=== PATIENT | female | born 1985 | race Caucasian/White ===

== ENCOUNTER 2019-05-15 22:34 | Emergency (ER) | payer MEDICAID ==
[2019-05-15 23:01] VITALS: BP 136/72; PULSE 89
[2019-05-15] MEDS ORDERED: Lidocaine 1% 20 ML MDV ONE (23:04)
[2019-05-15] MEDS ORDERED: Diphtheria,Pertussis(Acell),Tetanus Vaccine 0.5 ML SDV IM ONE (23:13)
--- NOTE | 2019-05-15 23:18 | EDM.PDOC ---
ED HPI GENERAL MEDICAL PROBLEM - General Chief Complaint: General Stated Complaint: laceration left wrist Time Seen by Provider: 05/15/19 23:12 Source of Information: Reports: Patient History Limitations: Reports: No Limitations - History of Present Illness INITIAL COMMENTS - FREE TEXT/NARRATIVE: Patient is a 33-year-old female who presents to the emergency department this evening via private vehicle with a complaint of laceration to left wrist. Patient states that a metal sculpture fell off a shelf and she tried to catch it , but it accidentally cut her left wrist. This occurred approximately 2029 this evening. Patient is not up-to-date with tetanus. Patient denies any other injury or self-inflicted wound. Onset: Today Onset Date: 05/15/19 Onset Time: 20:30 Duration: Hour(s): Location: Reports: Upper Extremity, Left Quality: Reports: Burning Severity: Mild Improves with: Reports: None Worsens with: Reports: None Context: Reports: Trauma Associated Symptoms: Reports: No Other Symptoms Left Wrist Pain Score (Numeric/FACES): 6 - Related Data Allergies Allergy/AdvReac Type Severity Reaction Status Date / Time celecoxib [From Celebrex] AdvReac Other Verified 05/15/19 23:02 Home Meds: Home Meds Acetaminophen [Tylenol Extra Strength] 500 mg PO BID 04/12/13 [History] Ibuprofen [Motrin] 400 mg PO BID 04/12/13 [History] Acetaminophen/HYDROcodone [[place] 325-5 MG] 1 tab PO Q6H PRN 11/02/15 [History] Diazepam [Valium] 2 mg PO Q8H PRN 11/02/15 [History] Metoprolol Succinate 50 mg PO DAILY 11/02/15 [History] risperiDONE 0.5 mg PO DAILY 11/02/15 [History] Past Medical History Cardiovascular History: Reports: Hypertension Musculoskeletal History: Reports: Back Pain, Chronic ED ROS GENERAL - Review of Systems Review Of Systems: Comprehensive ROS is negative, except as noted in HPI. Constitutional: Reports: No Symptoms HEENT: Reports: No Symptoms Respiratory: Reports: No Symptoms Cardiovascular: Reports: No Symptoms Endocrine: Reports: No Symptoms GI/Abdominal: Reports: No Symptoms : Reports: No Symptoms Musculoskeletal: Reports: No Symptoms Skin: Reports: Wound (Laceration to left wrist) Neurological: Reports: No Symptoms Psychiatric: Reports: No Symptoms Hematologic/Lymphatic: Reports: No Symptoms Immunologic: Reports: No Symptoms ED EXAM, GENERAL - Physical Exam Exam: See Below Exam Limited By: No Limitations General Appearance: Alert, WD/WN, No Apparent Distress Throat/Mouth: Normal Inspection, Normal Oropharynx, No Airway Compromise Head: Atraumatic, Normocephalic Neck: Normal Inspection Respiratory/Chest: No Respiratory Distress Neurological: Alert, Oriented, Normal Cognition Psychiatric: Normal Affect, Normal Mood Skin Exam: Warm, Dry, Normal Color, No Rash, Wound/Incision (3 cm linear laceration to left wrist) ED GENERAL MEDICAL PROCEDURES - Laceration/Wound Repair Left Ventral Wrist Lac/wound length in cm: 3 Appearance: Superficial Distal NVT: Neuro & Vascular Intact, No Tendon Injury Anesthetic Type: Local Local Anesthesia - Lidocaine (Xylocaine): 1% Plain Local Anesthetic Volume: 3cc Skin Prep: Providone-Iodine (Betadine) Closed with: Roberto Carlos Sterile Dressing Applied: Nurse Tetanus Status Addressed: Yes Complications: No Course - Vital Signs Last Recorded V/S: Last Vital Signs Temp 98.7 F 05/15/19 22:34 Pulse 89 05/15/19 22:34 Resp 20 05/15/19 22:34 BP 136/72 05/15/19 22:34 Pulse Ox 99 05/15/19 22:34 - Orders/Labs/Meds Orders: Active Orders 24 hr Category Date Time Status Vaccines to be Administered [RC] PER UNIT ROUTINE Care 05/15/19 23:13 Ordered Diphth,Pertuss(Acell),Tet Vac [Adacel] Med 05/15/19 23:13 Once 0.5 ml IM .ONCE ONE Meds: Medications Discontinued Medications Generic Name Dose Route Start Last Admin Trade Name [place] PRN Reason Stop Dose Admin Lidocaine HCl Confirm 05/15/19 23:04 Xylocaine 1% Administered 05/15/19 23:05 Dose 20 ml .ROUTE .STK-MED ONE - Re-Assessments/Exams Free Text/Narrative Re-Assessment/Exam: 05/15/19 23:18 Patient afebrile, vital signs stable, patient requested roberto carlos. Patient tolerated procedure well. Patient follow-up with PCP for staple removal in 10 days. Departure - Departure Time of Disposition: 23:19 Disposition: Home, Self-Care 01 Condition: Good Clinical Impression: Laceration - Discharge Information Instructions: Laceration Care, Adult, [id number], Stitches, [place], or Adhesive Wound Closure, [id number] Additional Instructions: Follow-up with PCP in 10 days for staple removal. Return to emergency department sooner if symptoms continue or worsen. Sepsis Event Note - Evaluation Sepsis Screening Result: No Definite Risk - Focused Exam Vital Signs: Vital Signs Temp Pulse Resp BP Pulse Ox 05/15/19 22:34 98.7 F 89 20 136/72 99 Date Exam was Performed: 05/15/19 Time Exam was Performed: 23:13 - My Orders Last 24 Hours: My Active Orders 05/15/19 23:13 Vaccines to be Administered [RC] PER UNIT ROUTINE Diphth,Pertuss(Acell),Tet Vac [Adacel] 0.5 ml IM .ONCE ONE - Assessment/Plan Last 24 Hours: My Active Orders 05/15/19 23:13 Vaccines to be Administered [RC] PER UNIT ROUTINE Diphth,Pertuss(Acell),Tet Vac [Adacel] 0.5 ml IM .ONCE ONE Assessment:: Left wrist laceration Plan: Follow-up with PCP
[2019-05-15] MEDS ORDERED: Bacitracin/Neomycin/Polymyxin B Oint 0.9 GM U/D Packet TOP ONE (23:19)
== END 2019-05-15 23:47 | disposition home or self-care (01) ==
LOC: KA.ED 22:34
DX: S61.512A Laceration without foreign body of left wrist, initial encounter (principal); I10 Essential (primary) hypertension; Z23 Encounter for immunization; Z88.8 Allergy status to other drugs, medicaments and biological substances; Z79.899 Other long term (current) drug therapy; W26.8XXA Contact with other sharp object(s), not elsewhere classified, initial encounter
CPT/HCPCS: 12002; 90471; 90715; 99282; J2001

== ENCOUNTER 2019-09-07 03:57 | Emergency (ER) | payer MEDICAID ==
[2019-09-07 04:19] VITALS: BP 127/79; PULSE 81
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
[2019-09-07] MEDS: Ondansetron 4 MG Tab.DIS PO ONE ×2 (05:06→06:30)
[2019-09-07] MEDS: HYDROmorphone 1 MG/ML Syringe IM ONE (05:07)
[2019-09-07] MEDS: Acetaminophen/HYDROcodone 325-5 MG Tab PO ONE (06:29)
== END 2019-09-07 06:46 | disposition home or self-care (01) ==
LOC: KA.ED 03:57
DX: O20.9 Hemorrhage in early pregnancy, unspecified (principal); O99.211 Obesity complicating pregnancy, first trimester; O10.911 Unspecified pre-existing hypertension complicating pregnancy, first trimester; O99.331 Smoking (tobacco) complicating pregnancy, first trimester; F17.210 Nicotine dependence, cigarettes, uncomplicated; Z88.8 Allergy status to other drugs, medicaments and biological substances
CPT/HCPCS: 36416; 81001; 81025; 85025; 96372; 99284; A9270-GY; J1170

== ENCOUNTER 2020-05-08 18:47 | Emergency (ER) | payer MEDICAID ==
[2020-05-08 18:56] VITALS: BP 137/86; PULSE 89
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
== END 2020-05-08 20:05 | disposition home or self-care (01) ==
LOC: KA.ED 18:47
DX: O20.0 Threatened abortion (principal); O10.911 Unspecified pre-existing hypertension complicating pregnancy, first trimester; O99.211 Obesity complicating pregnancy, first trimester; E66.9 Obesity, unspecified; Z72.0 Tobacco use; Z88.8 Allergy status to other drugs, medicaments and biological substances; Z79.899 Other long term (current) drug therapy
CPT/HCPCS: 36415; 84702; 84703; 99284

== ENCOUNTER 2020-06-28 09:34 | Emergency (ER) | payer MEDICAID ==
[2020-06-28 09:49] VITALS: BP 113/81; PULSE 92
[2020-06-28] MEDS ORDERED: Cyclobenzaprine 10 MG Tab PO ONE (10:20)
[2020-06-28] MEDS ORDERED: Ketorolac 60 MG/2 ML SDV IM ONE (10:20)
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
[2020-06-28] MEDS ORDERED: Lidocaine 1% 20 ML MDV ONE (10:30)
== END 2020-06-28 11:39 | disposition home or self-care (01) ==
LOC: KA.ED 09:34
DX: M62.830 Muscle spasm of back (principal); E66.9 Obesity, unspecified; Z68.30 Body mass index [BMI] 30.0-30.9, adult; Z72.0 Tobacco use; Z88.6 Allergy status to analgesic agent; Z68.42 Body mass index [BMI] 45.0-49.9, adult
CPT/HCPCS: 96372; 99283; A9270; J1885

== ENCOUNTER 2020-07-06 17:38 | Emergency (ER) | payer MEDICAID ==
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
[2020-07-06 19:10] LABS: ANION GAP 15.3 mmol/L (5-15); CHLORIDE,CL 108 mmol/L (98-107); SODIUM,NA 143 mmol/L (136-145)
[2020-07-06 19:23] VITALS: BP 134/76; PULSE 76
--- NOTE | 2020-07-06 19:40 | CR ---
[id number] RAD/RAD Knee Left 3V EXAM: 3 VIEWS LEFT KNEE. INDICATION: LEFT KNEE PAIN COMPARISON: None. DISCUSSION: No fracture, dislocation or other acute osseous abnormality. Moderate degenerative changes involving the lateral and patellofemoral compartments of the left knee. Mild degenerative changes of the medial compartment. Moderate left knee joint effusion. IMPRESSION: 1. No acute osseous abnormalities. Chronic changes as above. Kulwinder Graham DO 07/06/20 1939 Thank you for allowing us to participate in the care of your patient.
== END 2020-07-06 19:45 | disposition home or self-care (01) ==
LOC: KA.ED 17:38
DX: S86.912A Strain of unspecified muscle(s) and tendon(s) at lower leg level, left leg, initial encounter (principal); K62.5 Hemorrhage of anus and rectum; E66.9 Obesity, unspecified; Z88.6 Allergy status to analgesic agent; Z68.42 Body mass index [BMI] 45.0-49.9, adult; X50.1XXA Overexertion from prolonged static or awkward postures, initial encounter
CPT/HCPCS: 36415; 73562-LT; 80053; 82272; 85025; 99284; 99285-25

== ENCOUNTER 2020-08-11 17:08 | Emergency (ER) | payer MEDICAID ==
[2020-08-11] MEDS ORDERED: Sodium Chloride 0.9% 10 ML Syringe FLUSH PRN (17:39)
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
[2020-08-11] MEDS: Sodium Chloride 0.9% 1,000 ML IV ONE (17:49)
[2020-08-11 18:31] LABS: BARBITURATE SCREEN,URINE NEGATIVE (NEGATIVE); BENZODIAZEPINES SCREEN,URINE POSITIVE (NEGATIVE); TCA SCREEN,URINE NEGATIVE (NEGATIVE); THC SCREEN,URINE 50 NG/ML POSITIVE (NEGATIVE)
[2020-08-11 18:51] LABS: ANION GAP 10.5 mmol/L (5-15); CHLORIDE,CL 106 mmol/L (98-107); SODIUM,NA 141 mmol/L (136-145)
[2020-08-11 19:45] VITALS: BP 114/64; PULSE 68
== END 2020-08-11 21:20 ==
LOC: KA.ED 17:08
DX: F32.9 Major depressive disorder, single episode, unspecified (principal); Z88.6 Allergy status to analgesic agent; E66.9 Obesity, unspecified; Z68.30 Body mass index [BMI] 30.0-30.9, adult
CPT/HCPCS: 36415; 80053; 80143; 80305-QW; 80307; 84703; 85025; 99284; 99285; J7030

== ENCOUNTER 2020-08-20 23:10 | Emergency (ER) | payer MEDICAID ==
[2020-08-20] MEDS: Lidocaine 1% with EPINEPHrine 1:100,000 20 ML MDV ONE (23:50)
[2020-08-21] MEDS ORDERED: Bacitracin/Neomycin/Polymyxin B Oint 0.9 GM U/D Packet ONE (00:01)
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
[2020-08-21 01:43] VITALS: BP 131/89; PULSE 97
[2020-08-24] MEDS ORDERED: Lidocaine 1% with EPINEPHrine 1:100,000 20 ML MDV INJECT ONE (08:41)
[2020-08-24] MEDS: Lidocaine 1% with EPINEPHrine 1:100,000 20 ML MDV ONE (12:35)
== END 2020-08-21 00:10 | disposition home or self-care (01) ==
LOC: KA.ED 23:10
DX: S51.811A Laceration without foreign body of right forearm, initial encounter (principal); E66.9 Obesity, unspecified; I10 Essential (primary) hypertension; Z88.6 Allergy status to analgesic agent; Z68.30 Body mass index [BMI] 30.0-30.9, adult; W26.0XXA Contact with knife, initial encounter
CPT/HCPCS: 12001; 99282-25; 99283

== ENCOUNTER 2020-09-05 22:20 | Emergency (ER) | payer MEDICAID ==
[2020-09-05 22:39] VITALS: BP 136/91; PULSE 107
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
[2020-09-05] MEDS ORDERED: traMADol 50 MG Tab PO ONE ×2 (23:27→23:47)
[2020-09-05] MEDS ORDERED: Acetaminophen 500 MG Tab PO ONE (23:36)
[2020-09-05] MEDS ORDERED: Ondansetron 4 MG Tab.DIS PO ONE (23:53)
--- NOTE | 2020-09-06 10:57 | CR ---
[id number] RAD/RAD Knee Left 3V Exam: RAD Knee Left 3V Indication:KNEE; LEG PAIN Comparison: July 2020. Discussion/Impression: Tricompartmental knee joint osteoarthritis with joint space narrowing. Small knee joint effusion. Lateral view demonstrates 19 x 13 mm mineralized structure projecting over the posterior aspect of the knee on lateral view. This was seen previously and likely degenerative osteochondral body in either the posterior recess of the joint or within a popliteal cyst. Popliteal tendon sheath location is also possible. No acute fracture or other significant change compared to the prior examination comment including 14 mm well-corticated lucency in the distal femoral metaphysis. Finding was seen on MRI from July 2020 and demonstrates benign features. Trace Mcguire MD 09/06/20 1055 Thank you for allowing us to participate in the care of your patient.
== END 2020-09-06 | disposition home or self-care (01) ==
LOC: KA.ED 22:20
DX: M66.0 Rupture of popliteal cyst (principal); M17.12 Unilateral primary osteoarthritis, left knee; I10 Essential (primary) hypertension; E66.9 Obesity, unspecified; Z68.42 Body mass index [BMI] 45.0-49.9, adult; Z88.8 Allergy status to other drugs, medicaments and biological substances; Z72.0 Tobacco use
CPT/HCPCS: 36415; 73562-LT; 85379; 99284; 99284-25; A9270-GY

== ENCOUNTER 2021-03-12 18:00 | Emergency (ER) | payer MEDICAID ==
[2021-03-12] MEDS ORDERED: Morphine 2 MG/ML SYRINGE IVPUSH ONE (18:50)
[2021-03-12] MEDS ORDERED: Ondansetron 4 MG/2 ML SDV IVPUSH ONE (18:51)
[2021-03-12] MEDS ORDERED: Sodium Chloride 0.9% 1,000 ML IV ONE (18:52)
--- NOTE | 2021-03-12 18:59 | CR ---
[id number] RAD/RAD Abd Flat and Upright 2V EXAM: RAD Abd Flat and Upright 2V INDICATION: Abdominal pain. COMPARISON: April 07, 2018. DISCUSSION: Normal bowel gas pattern without bowel dilation, free air or pneumatosis identified. No pathologic calcifications or osseous abnormality is seen. Cholecystectomy clips right upper quadrant. IMPRESSION: 1. Negative exam. Maico Roque MD 03/12/21 0580 Thank you for allowing us to participate in the care of your patient.
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
[2021-03-12 19:31] LABS: ANION GAP 15.3 mmol/L (5-15); CHLORIDE,CL 102 mmol/L (98-107); SODIUM,NA 137 mmol/L (136-145)
[2021-03-12 20:16] VITALS: BP 125/69; PULSE 75
--- NOTE | 2021-03-12 20:16 | CT ---
[id number] CT/CT Abdomen Pelvis W IV EXAM: CT Abdomen Pelvis W IV INDICATION: Abdomen pain, constipation, and vomiting. COMPARISON: None. DISCUSSION: Small sliding type hiatus hernia. 27 mm left ovarian corpus luteum cyst. Hysterectomy. Cholecystectomy. Mild to moderate lumbar spondylosis L3-L4, L4-L5 and L5-S1. Borderline hepatic steatosis. The pancreas, spleen, adrenal glands, kidneys, small bowel, large bowel, and the appendix are normal in appearance. No adenopathy, free air, or free fluid. IMPRESSION: 1. No acute findings. Maico Roque MD 03/12/212014 Thank you for allowing us to participate in the care of your patient.
[2021-03-12] MEDS ORDERED: Loperamide 2 MG Cap PO ONE (20:30)
[2021-03-12] MEDS ORDERED: Famotidine 20 MG/2 ML SDV IVPUSH ONE (20:49)
[2021-03-12] MEDS ORDERED: Bismuth Subsalicylate 262 MG Tab.Chew PO ONE (20:49)
[2021-03-12] MEDS ORDERED: Ondansetron 4 MG Tab.DIS PO PRN (20:59)
[2021-03-12] MEDS: Pantoprazole 40 MG in Sodium Chloride 0.9% 100 ML IV ONE ×2 (20:59→21:01)
[2021-03-12] MEDS ORDERED: Pantoprazole 40 MG Vial IVPUSH ONE (21:01)
== END 2021-03-12 21:27 | disposition home or self-care (01) ==
LOC: KA.ED 18:00
DX: K52.9 Noninfective gastroenteritis and colitis, unspecified (principal); E66.9 Obesity, unspecified; Z68.42 Body mass index [BMI] 45.0-49.9, adult; Z88.8 Allergy status to other drugs, medicaments and biological substances; Z72.0 Tobacco use; Z90.710 Acquired absence of both cervix and uterus
CPT/HCPCS: 36415; 74021; 74177; 80053; 81001; 85025; 96374; 96375; 99284; 99284-25; A9270-GY; C9113; J2270; J2405; J3490; J7030

== ENCOUNTER 2021-03-24 20:31 | Emergency (ER) | payer MEDICAID ==
[2021-03-24] MEDS ORDERED: Sodium Chloride 0.9% 10 ML Syringe FLUSH PRN (20:43)
[2021-03-24] MEDS ORDERED: Aspirin 81 MG Tab.Chew PO ONE (20:43)
[2021-03-24 21:47] LABS: ANION GAP 16.6 mmol/L (5-15); CHLORIDE,CL 102 mmol/L (98-107); SODIUM,NA 138 mmol/L (136-145)
[2021-03-24 22:03] LABS: BARBITURATE SCREEN,URINE NEGATIVE (NEGATIVE); BENZODIAZEPINES SCREEN,URINE POSITIVE (NEGATIVE); TCA SCREEN,URINE NEGATIVE (NEGATIVE); THC SCREEN,URINE 50 NG/ML POSITIVE (NEGATIVE)
[2021-03-25 00:30] VITALS: BP 108/70; PULSE 65
== END 2021-03-24 22:23 | disposition home or self-care (01) ==
LOC: KA.ED 20:31
DX: G45.9 Transient cerebral ischemic attack, unspecified (principal); F19.90 Other psychoactive substance use, unspecified, uncomplicated; I10 Essential (primary) hypertension; E66.9 Obesity, unspecified; Z68.42 Body mass index [BMI] 45.0-49.9, adult; Z88.8 Allergy status to other drugs, medicaments and biological substances
CPT/HCPCS: 36415; 70450; 71046; 80048; 80305-QW; 84484; 85025; 93005; 93010; 99285; 99285-25; A9270-GY

== ENCOUNTER 2021-05-12 20:12 | Emergency (ER) | payer MEDICAID, OTHER ==
[2021-05-12] MEDS: HYDROmorphone 1 MG/ML Syringe IVPUSH ONE ×2 (20:29→21:09)
[2021-05-12] MEDS: HYDROmorphone 1 MG/ML Syringe ONE (20:30)
[2021-05-12 20:37] VITALS: PULSE 70
[2021-05-12 21:19] VITALS: BP 115/45
== END 2021-05-12 22:24 ==
LOC: KA.ED 20:12
DX: S83.104A Unspecified dislocation of right knee, initial encounter (principal); I10 Essential (primary) hypertension; E66.9 Obesity, unspecified; Z68.42 Body mass index [BMI] 45.0-49.9, adult; Z88.8 Allergy status to other drugs, medicaments and biological substances; W00.9XXA Unspecified fall due to ice and snow, initial encounter
CPT/HCPCS: 29505; 73560-RT; 73562-RT; 73590-RT; 96374; 96376; 99284; 99285-25; J1170

== ENCOUNTER 2021-06-28 12:05 | Emergency (ER) | payer MEDICAID ==
[2021-06-28 12:22] VITALS: BP 132/86; PULSE 73
[2021-06-28] MEDS ORDERED: Flumazenil 0.1 MG/ML 5 ML MDV IVPUSH ONE (12:24)
[2021-06-28] MEDS ORDERED: Sodium Chloride 0.9% 1,000 ML IV ONE (12:29)
[2021-06-28 13:16] LABS: ANION GAP 8.4 mmol/L (5-15); CHLORIDE,CL 105 mmol/L (98-107); SODIUM,NA 138 mmol/L (136-145)
[2021-06-28 13:18] LABS: ACETAMINOPHEN < 0.0 ug/mL (10.0-30.0)
[2021-06-28 15:35] LABS: BARBITURATE SCREEN,URINE NEGATIVE (NEGATIVE)
[2021-06-28 15:36] LABS: BENZODIAZEPINES SCREEN,URINE POSITIVE (NEGATIVE)
[2021-06-28 15:37] LABS: THC SCREEN,URINE 50 NG/ML POSITIVE (NEGATIVE)
[2021-06-28 15:38] LABS: TCA SCREEN,URINE NEGATIVE (NEGATIVE)
== END 2021-06-28 18:10 ==
LOC: KA.ED 12:05
DX: T42.4X2A Poisoning by benzodiazepines, intentional self-harm, initial encounter (principal); I10 Essential (primary) hypertension; Z90.49 Acquired absence of other specified parts of digestive tract; Z90.710 Acquired absence of both cervix and uterus; Z79.899 Other long term (current) drug therapy; Z88.6 Allergy status to analgesic agent
CPT/HCPCS: 36415; 80053; 80143; 80305-QW; 80307; 84703; 85025; 93010; 99284; 99285; J7030

== ENCOUNTER 2021-07-06 15:07 | Emergency (ER) | payer MEDICAID ==
[2021-07-06] MEDS ORDERED: Sodium Chloride 0.9% 10 ML Syringe FLUSH PRN (15:27)
[2021-07-06] MEDS: Sodium Chloride 0.9% 1,000 ML IV ONE (15:36)
[2021-07-06 15:53] LABS: ANION GAP 15.3 mmol/L (5-15); CHLORIDE,CL 103 mmol/L (98-107); SODIUM,NA 137 mmol/L (136-145)
[2021-07-06 18:28] VITALS: BP 112/63; PULSE 89
== END 2021-07-06 18:42 | disposition home or self-care (01) ==
LOC: KA.ED 15:07
DX: E86.0 Dehydration (principal); F41.9 Anxiety disorder, unspecified; I10 Essential (primary) hypertension; E66.9 Obesity, unspecified; Z68.42 Body mass index [BMI] 45.0-49.9, adult; Z90.49 Acquired absence of other specified parts of digestive tract; Z79.899 Other long term (current) drug therapy; Z90.710 Acquired absence of both cervix and uterus; Z88.6 Allergy status to analgesic agent
CPT/HCPCS: 36415; 80048; 81001; 84484; 85025; 93005; 99284; 99284-25; J7030

== ENCOUNTER 2021-09-23 21:40 | Emergency (ER) | payer MEDICAID ==
[2021-09-23] MEDS ORDERED: Meperidine PF 25 MG/ML Syringe IM ONE (21:53)
[2021-09-23 22:05] VITALS: BP 124/69; PULSE 86
== END 2021-09-23 23:15 | disposition home or self-care (01) ==
LOC: KA.ED 21:40
DX: G89.18 Other acute postprocedural pain (principal); M25.561 Pain in right knee; I10 Essential (primary) hypertension; F17.210 Nicotine dependence, cigarettes, uncomplicated; E66.9 Obesity, unspecified; Z68.42 Body mass index [BMI] 45.0-49.9, adult; Z88.1 Allergy status to other antibiotic agents; Z79.899 Other long term (current) drug therapy; Z90.49 Acquired absence of other specified parts of digestive tract; Z90.710 Acquired absence of both cervix and uterus
CPT/HCPCS: 96372; 99283; J2175

== ENCOUNTER 2021-09-27 06:25 | Emergency (ER) | payer MEDICAID ==
[2021-09-27 06:51] VITALS: BP 137/64; PULSE 104
== END 2021-09-27 07:50 | disposition home or self-care (01) ==
LOC: KA.ED 06:25
DX: L76.82 Other postprocedural complications of skin and subcutaneous tissue (principal); F17.210 Nicotine dependence, cigarettes, uncomplicated; I10 Essential (primary) hypertension; E66.9 Obesity, unspecified; Z68.42 Body mass index [BMI] 45.0-49.9, adult; Z88.1 Allergy status to other antibiotic agents; Z79.899 Other long term (current) drug therapy
CPT/HCPCS: 99283; 99284

== ENCOUNTER 2021-12-02 21:44 | Emergency (ER) | payer OTHER, MEDICAID ==
[2021-12-02 23:29] VITALS: BP 117/59; PULSE 79
== END 2021-12-02 23:12 | disposition home or self-care (01) ==
LOC: KA.ED 21:44
DX: M25.461 Effusion, right knee (principal); I10 Essential (primary) hypertension; E66.9 Obesity, unspecified; Z68.42 Body mass index [BMI] 45.0-49.9, adult; Z88.1 Allergy status to other antibiotic agents; Z79.899 Other long term (current) drug therapy; Z79.82 Long term (current) use of aspirin; W22.09XA Striking against other stationary object, initial encounter
CPT/HCPCS: 72125; 73562-RT; 99283; 99284